=== PATIENT | male | born 1995 | race Hispanic/Latino ===

== ENCOUNTER 2017-11-15 13:44 | Emergency (ER) | payer MEDICAID | END 2017-11-15 16:41 | disposition home or self-care (01) | LOC: EDH 13:44 | DX: B34.9 Viral infection, unspecified (principal); R10.9 Unspecified abdominal pain; R07.9 Chest pain, unspecified; Z91.030 Bee allergy status | CPT/HCPCS: 93005 ==

== ENCOUNTER 2018-11-09 09:33 | Emergency (ER) | payer MEDICAID | END 2018-11-09 11:12 | disposition home or self-care (01) | LOC: EDH 09:33 | DX: S20.212A Contusion of left front wall of thorax, initial encounter (principal); Z91.030 Bee allergy status; Z72.0 Tobacco use; V49.49XA Driver injured in collision with other motor vehicles in traffic accident, initial encounter; Y93.89 Activity, other specified; Y92.89 Other specified places as the place of occurrence of the external cause; Y99.8 Other external cause status | CPT/HCPCS: 71045 ==

== ENCOUNTER 2018-11-10 22:25 | Emergency (ER) | payer MEDICAID ==
[2018-11-11] MEDS ORDERED: CYCLOBENZAPRINE HCL 10 MG TABLET ONE (00:21)
[2018-11-11] MEDS ORDERED: HYDROCODONE/ACETAMINOPHEN 5/325 MG TAB ONE (00:22)
== END 2018-11-11 02:00 | disposition home or self-care (01) ==
LOC: EDH 22:25
DX: R07.81 Pleurodynia (principal); Z91.030 Bee allergy status; Z72.0 Tobacco use; Z98.890 Other specified postprocedural states; V89.2XXD Person injured in unspecified motor-vehicle accident, traffic, subsequent encounter
CPT/HCPCS: 71101; 72070; 72100

== ENCOUNTER 2019-08-27 00:48 | Emergency (ER) | payer MEDICAID ==
[2019-08-27] MEDS ORDERED: DEXAMETHASONE SOD PHOSPHATE 10MG/ML 1ML VIAL ONE (01:08)
[2019-08-27] MEDS ORDERED: KETOROLAC TROMETHAMINE 30MG/ML ONE (01:08)
== END 2019-08-27 01:44 | disposition home or self-care (01) ==
LOC: EDH 00:48
DX: M62.830 Muscle spasm of back (principal); Z90.49 Acquired absence of other specified parts of digestive tract; Z91.030 Bee allergy status
CPT/HCPCS: 96372 ×2; 99284; J1100; J1885

== ENCOUNTER 2021-01-06 14:31 | Emergency (ER) | payer MEDICAID ==
[2021-01-06] MEDS ORDERED: CYCLOBENZAPRINE HCL 10 MG TABLET ONE (15:59)
== END 2021-01-06 16:40 | disposition home or self-care (01) ==
LOC: EDH 14:31
DX: R20.2 Paresthesia of skin (principal); Z87.891 Personal history of nicotine dependence